=== PATIENT | male | born 1990 | race Caucasian/White ===

== ENCOUNTER 2021-02-23 07:40 | Emergency (ER) | payer BC, OTHER ==
[~2021-02-23 07:40] MED LIST: FLEXERIL 10 MG10 MG PO; IBUPROFEN800 MG PO
[2021-02-23 08:30] LABS: HEMOGLOBIN 14.5 gm/dl (14.0-17.5); RED BLOOD COUNT 5.11 M/UL (4.20-5.50)
[2021-02-23 10:09] LABS: BUN/CREATININE RATIO 11 (0-10)
== END 2021-02-23 12:05 | disposition home or self-care (01) ==
LOC: ER1 07:40
PROVIDERS: Physician Assistant
DX: R07.9 Chest pain, unspecified (principal); F17.290 Nicotine dependence, other tobacco product, uncomplicated
CPT/HCPCS: 71045; 80053; 82550; 82553; 83874; 84484; 85025; 93005; 99285

== ENCOUNTER 2021-12-13 21:40 | Emergency (ER) | payer BC ==
[2021-12-13] MEDS ORDERED: BACTROBAN OINT22 GM EXT (22:39)
[2021-12-13] MEDS ORDERED: NAPROXEN500 MG PO (22:39)
[2021-12-13] MEDS ORDERED: CEPHALEXIN500 M1 PO (22:39)
== END 2021-12-13 23:08 | disposition home or self-care (01) ==
LOC: ER1 21:40
DX: S71.122A Laceration with foreign body, left thigh, initial encounter (principal); W20.8XXA Other cause of strike by thrown, projected or falling object, initial encounter
CPT/HCPCS: 73564; 90471; 90715; 99283